=== PATIENT | female | born 1985 | race Caucasian/White ===

== ENCOUNTER 2017-03-10 07:02 | Emergency (ER) | payer OTHER ==
[~2017-03-10] VITALS: Ht 152.4 cm; Wt 49.9 kg
[~2017-03-10 07:02] MED LIST: CLOTRIMAZOLE-BE15 GM TOP; FIORICET 325 MG1 TAB PO; KEFLEX500 MG PO; LOTRISONE CREAM15 G1 TOP; PRENATAL TABLE1 EAC2 PO
[2017-03-10 07:10] VITALS: BP 114/76
--- NOTE | 2017-03-10 07:35 | ED NECK/BACK PAIN COMPLAINT ---
History of Present Illness General Chief Complaint: Low Back Pain/Injury Stated Complaint: RIGHT SIDE LOWER BACK AND SHOULDER PAIN Source: patient Exam Limitations: no limitations Vital Signs & Intake/Output Vital Signs & Intake/Output Vital Signs Date Time Temp Pulse Resp B/P B/P Pulse O2 O2 Flow FiO2 Mean Ox Delivery Rate 03/10 0710 97.1 86 18 114/76 98 Room Air Allergies Coded Allergies: NO KNOWN ALLERGIES (03/06/14) Reconcile Medications Clotrimazole/Betamethasone Dip (Clotrimazole-Betamethasone Crm) 1 %-0.05 % CREAM..G. 1 TYLER TOP BID RINGWORM apply to affected area(s) Cyclobenzaprine HCl 10 MG TABLET 1 TAB PO QPM PRN SPASM DO NOT DRIVE WITH THIS MEDICATION Triage Note: PT STTAE THAT SHE HAS BEEN HAVING R SIDE LOW BACK PAIN SINCE THURSDAY PM AFTER LIFTING LAUNDRY BASKET, HAS BEEN TAKING MOTRIN WITH SOME RELIEF. Triage Nurses Notes Reviewed? yes Onset: Abrupt Duration: day(s): (few) Timing: multiple episodes today Location: right posterior thoracic spine Method of Injury: LIFTING LAUNDRY BASKET Modifying Factors: movement, other (DEEP BREATH) : No Patient currently breastfeeds: No HPI: This is a 31-year-old female presents the ER with chief complaint of back pain and spasm after lifting up a laundry basket on Thursday. 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 No weakness or numbness of the arms. Some pain with range of motion of the neck to the right. She states the pain. Her right lower back to her right Past History Travel History Traveled to [place] past 21 day No Medical History Any Pertinent Medical History? see below for history Neurological: NONE EENT: NONE Cardiovascular: NONE Respiratory: NONE Gastrointestinal: NONE Hepatic: NONE Renal: NONE Musculoskeletal: NONE Psychiatric: NONE Endocrine: NONE Blood Disorders: NONE Cancer(s): NONE TOOL SETTER/Reproductive: NONE History of CDIFF: No Surgical History Surgical History: N Psychosocial History What is your primary language Chadian Tobacco Use: Never used ETOH Use: denies use Illicit Drug Use: denies illicit drug use Family History Hx Contributory? No Review of Systems Review of Systems Constitutional: Denies: chills, fever. Eyes: Reports: no symptoms. Ears, Nose, Throat, Mouth: Reports: no symptoms. Respiratory: Reports: no symptoms. Cardiovascular: Denies: chest pain. Gastrointestinal/Abdominal: Reports: no symptoms. Musculoskeletal: Reports: back pain, muscle pain, muscle stiffness. Denies: neck pain. Skin: Reports: no symptoms. Neurological/Psychological: Denies: numbness, paresthesia, tingling, weakness. All Other Systems: Reviewed and Negative Physical Exam Physical Exam General Appearance: awake, mild distress, thin Head: atraumatic Eyes: Bilateral: PERRL, EOMI. Ears, Nose, Throat, Mouth: hearing grossly normal Neck: normal inspection, supple, full range of motion Respiratory: normal breath sounds Cardiovascular: regular rate/rhythm Peripheral Pulses: 2+ radial (R), 2+ radial (L) Gastrointestinal: soft, non-tender Back: normal inspection, normal range of motion, muscle spasm Extremities: normal range of motion Straight Leg Raising: Right: Negative. Left: Negative. Neurologic/Psych: awake, alert, oriented x 3, normal mood/affect Skin: intact, normal color, warm/dry Diagram Body: 1) TENDER TO PALPATION 2) TENDER TO PALPATION Progress Differential Diagnosis: myofascial strain, T/L spine injury, RIB INJURY, MUSCLE SPASM Plan of Care: NSAIDS, MUSCLE RELAXANT PATIENT REQUESTING NOTE FOR WORK FOR TODAY AND TOMORROW BECAUSE SHE NEEDS REST Departure Departure Time of Disposition: 736 Disposition: HOME OR SELF CARE Condition: Stable Clinical Impression Primary Impression: Back muscle spasm Referrals: JO-ANN TUCKER MD Additional Instructions: Continue taking Motrin [id number]. Take Flexeril as needed for spasm. Please follow up with your primary care doctor or the one listed on her discharge. Departure Forms: Customer Survey General Discharge Information Prescriptions: Current Visit Scripts Cyclobenzaprine HCl 1 TAB PO QPM PRN SPASM #[address] WITH THIS MEDICATION
[2017-03-10] MEDS ORDERED: CYCLOBENZAPRINE10 M1 PO (07:37)
== END 2017-03-10 07:44 ==
LOC: ERH 07:02
DX: M62.830 Muscle spasm of back (principal)

== ENCOUNTER 2017-10-21 09:13 | Emergency (ER) | payer OTHER ==
[~2017-10-21] VITALS: Ht 152.4 cm; Wt 50.8 kg
[~2017-10-21 09:13] MED LIST changes: +CYCLOBENZAPRINE10 M1 PO
[2017-10-21 09:18] VITALS: BP 140/87
--- NOTE | 2017-10-21 10:06 | ED GI/GU/ABDOMINAL COMPLAINT ---
History of Present Illness General Chief Complaint: Abdominal Pain/Flank Pain Stated Complaint: ABD PAIN/ESTES Source: patient Exam Limitations: no limitations Vital Signs & Intake/Output Vital Signs & Intake/Output Vital Signs Date Time Temp Pulse Resp B/P B/P Pulse O2 O2 Flow FiO2 Mean Ox Delivery Rate 10/21 0918 98.6 81 18 140/87 98 Room Air Allergies Coded Allergies: NO KNOWN ALLERGIES (03/06/14) Reconcile Medications Clotrimazole/Betamethasone Dip (Clotrimazole-Betamethasone Crm) 1 %-0.05 % CREAM..G. 1 TYLER TOP BID RINGWORM apply to affected area(s) Cyclobenzaprine HCl 10 MG TABLET 1 TAB PO QPM PRN SPASM DO NOT DRIVE WITH THIS MEDICATION Triage Note: 32 YO FEMALE TO [facility] C/O LOWER ABD PAIN, +DIARRHEA AND CONSTIPATION PER PT FOR THE LAST WEEK. STATES SHE THOUGHT SHE WAS BUT TOOK A TEST THAT WAS NEGATIVE. STATES SHE HAS BEEN FEELING VERY AGITAED AND NOT HERLSEF OVER THE LAST COUPLE OF WEEKS. ALSO C/O HEADACHE, DENIES VISUAL DISTRUBANCES. LMP 09/26/17 Triage Nurses Notes Reviewed? yes ? n Is pt currently ? No HPI: Ms Negron is a 32 yo f with no PMH who presents to the ED with LLQ abdominal dull pain for 1 day. Patient reports yesterday she felt a LLQ pinching pain 7/10 in severity without radiation. Patient reports she has been trying to get recently and assumed she was . She took a test at home which she reports results were inconclusive. She reports she has also has a intermittent BL temporal ESTES that feels like a throbbing pain. Her LMP was . She reports a chronic history of alternating constipation and diarrhea that resolves with prescribed medications. She denies fever, chills, blurry vision, palpitations, light/noise sensitivity, nausea, vomiting, menstrual cramps, urinary symptoms. (Simona VASQUEZ,[facility]) Past History Travel History Traveled to [place] past 21 day No Medical History Any Pertinent Medical History? 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 No (Lynn Jarvis MD) Review of Systems Review of Systems Constitutional: Reports: see HPI. (Lynn Jarvis MD) Physical Exam Physical Exam General Appearance: well developed/nourished, no apparent distress, alert, awake , comfortable Head: atraumatic, normal appearance Eyes: Bilateral: normal appearance, PERRL, EOMI. Ears, Nose, Throat, Mouth: moist mucous membrane Neck: normal inspection Respiratory: normal breath sounds, lungs clear Cardiovascular: regular rate/rhythm Gastrointestinal: normal bowel sounds, soft, non-tender Extremities: normal range of motion Core Measures ACS in differential dx? No Sepsis Present: No Sepsis Focused Exam Completed? No (Lynn Jarvis MD) Progress Differential Diagnosis: bowel obstruction, ectopic , intrauterine , ovarian torsion Initial ED EKG: none (Lynn Jarvis MD) Plan of Care: Orders Procedure Date/time Status URINE 10/21 918 Complete URINALYSIS 10/21 918 Complete Laboratory Tests 10/21/17 0959: Urine Color YEL, Urine Clarity CLEAR, Urine pH 6.5, Ur Specific [place] 1.025, Urine Protein NEG, Urine Ketones TRACE H, Urine Nitrite NEG, Urine Bilirubin NEG, Urine Urobilinogen 0.2, Ur Leukocyte Esterase NEG, Ur Microscopic EXAM NOT REQUIRED, Urine Hemoglobin NEG, Urine Glucose NEG, Urine Test NEGATIVE (Courtney Nieves MD) Departure Departure Disposition: HOME OR SELF CARE Condition: Stable Clinical Impression Primary Impression: Abdominal pain Referrals: Patient Has No Primary Care Dr (PCP/Family) Additional Instructions: Follow up with your PCP upon discharge If symptoms worsen, do not hesistate to return to ED Departure Forms: Customer Survey General Discharge Information (Lynn Jarvis MD) Resident Co-Sign Statement Statement: ED Attending supervision documentation- [X] I saw and evaluated the patient. I have also reviewed all the pertinent lab results and diagnostic results. I agree with the findings and the plan of care as documented in the Resident's documentation. [X] I have reviewed the ED Record and agree with the Resident's documentation. [] Additions or exceptions (if any) to the Resident's note and plan are summarized below: [] (Lizbeth VASQUEZ,Courtney)
== END 2017-10-21 10:42 ==
LOC: ERH 09:13
DX: R10.32 Left lower quadrant pain (principal)
CPT/HCPCS: 81003; 81025